=== PATIENT | male | born 1955 | race Caucasian/White ===

== ENCOUNTER → 2018-07-17 | Day surgery (SDC) | payer MEDICARE ==
[~2018-07-17] MED LIST: LIDOCAINE 1% MPF 2 ML AMPULE ONE; PROPOFOL 200 MG/20 ML VIAL IV ONE; Ringers Lactate 1,000 ML IV ONE
--- NOTE | 2018-07-17 09:57 | ENDO RPT ---
[address], [address] COLONOSCOPY PROCEDURE REPORT EXAM DATE: 07/17/2018 PATIENT NAME: Onofre Owens MR #: [id number] BIRTHDATE: 1955 ATTENDING: Celso Clark DR STATUS: outpatient FRENCH POLISHER: Kari Matias RN, Destiny Calvillo RN, Cheyenne Ramos, and Samy Ramos INDICATIONS: The patient is a 62 yr old Male here for a colonoscopy due to colon cancer screening PROCEDURE PERFORMED: Colonoscopy with biopsy - cold polypectomy MEDICATIONS: Per Anesthesia. ESTIMATED BLOOD LOSS: None CONSENT: The patient understands the risks and benefits of the procedure and understands that these risks include, but are not limited to: sedation, allergic reaction, infection, perforation and/or bleeding. Alternative means of evaluation and treatment include, among others: physical exam, x-rays, and/or surgical intervention. The patient elects to proceed with this endoscopic procedure. DESCRIPTION OF PROCEDURE: During intra-op preparation period all mechanical medical equipment was checked for proper function. Hand hygiene and appropriate measures for infection prevention was taken. Procedure, possible complications, alternatives including, but not limited to possibility of bleeding, perforation, tear, infection, sepsis, need for surgery, need for blood transfusion, were explained to the patient. After the risks, benefits and alternatives of the procedure were thoroughly explained, Informed consent was verified, confirmed and timeout was successfully executed by the treatment team. The patient was placed in the left lateral position. A digital rectal exam was performed and revealed internal hemorrhoids. After appropriate level of anesthesia, the scope was passed. The EC-[id number] ([id number]) endoscope was introduced through the anus and advanced to the cecum, which was identified by both the appendix and ileocecal valve. The quality of the prep was poor. The instrument was then slowly withdrawn as the colon was fully examined. Scope withdrawal time was 12 minutes. COLON FINDINGS: Small internal hemorrhoids were found. Mild diverticulosis was noted in the sigmoid colon. No bleeding was noted from the diverticulosis. A small smooth sessile polyp was found in the rectosigmoid colon. A polypectomy was performed with cold forceps. The resection was complete, the polyp tissue was completely retrieved and sent to histology. Retroflexed views revealed no abnormalities. The scope was then completely withdrawn from the patient and the procedure terminated. ADVERSE EVENTS: There were no complications. IMPRESSIONS: 1. Small internal hemorrhoids 2. Mild diverticulosis was noted in the sigmoid colon 3. Small sessile polyp was found in the rectosigmoid colon; polypectomy was performed with cold forceps RECOMMENDATIONS: 1. avoid NSAIDS for 2 weeks 2. await biopsy results 3. follow-up: office 2 week(s) 4. low fiber / diverticular diet 5. increase dietary water 6. yearly hemoccult starting in 4 years 7. hemorrhoidal hygiene RECALL: Return in 2 year(s) for Colonoscopy, pending biopsy results. Poor Prep, Next Colonoscopy should be done with a [address] eSigned: Celso Clark DR 07/17/2018 9:57 AM cc: CPT CODES: ICD9 CODES: PATIENT NAME: Onofre Owens MR#: [id number]
== END | disposition home or self-care (01) ==
LOC: OR 07:53
PROVIDERS: ATTEND Surgery
PROC: 0DBN8ZX Excision of Sigmoid Colon, Via Natural or Artificial Opening Endoscopic, Diagnostic (ICD-10-PCS; principal; 2018-07-17 09:15)
DX: Z12.11 Encounter for screening for malignant neoplasm of colon (principal); K63.5 Polyp of colon; K57.90 Diverticulosis of intestine, part unspecified, without perforation or abscess without bleeding; K64.8 Other hemorrhoids; B18.2 Chronic viral hepatitis C; I10 Essential (primary) hypertension; J44.9 Chronic obstructive pulmonary disease, unspecified; G89.4 Chronic pain syndrome; M19.90 Unspecified osteoarthritis, unspecified site; G62.9 Polyneuropathy, unspecified; F41.8 Other specified anxiety disorders; F17.200 Nicotine dependence, unspecified, uncomplicated; Z79.02 Long term (current) use of antithrombotics/antiplatelets; Z86.73 Personal history of transient ischemic attack (TIA), and cerebral infarction without residual deficits; Z80.42 Family history of malignant neoplasm of prostate; Z82.49 Family history of ischemic heart disease and other diseases of the circulatory system
CPT/HCPCS: 45380; 88305; J2001; J2704 ×2

== ENCOUNTER 2020-08-18 07:46 | Day surgery (SDC) | payer MEDICARE ==
[2020-08-18] MEDS ORDERED: Ringers Lactate 1,000 ML IV ONE (08:34)
[2020-08-18] MEDS: CEFAZOLIN/SWI 1gm 1 GM/10 ML SYR ONE ×2 (09:18→09:50)
[2020-08-18] MEDS ORDERED: BUPIVACAINE 0.25% PF 30 ML VIAL ONE (09:29)
[2020-08-18] MEDS ORDERED: BUPIVACA 0.25%/EPI 0.0005% MDV 50 ML VIAL ONE (09:49)
[2020-08-18] MEDS ORDERED: FENTANYL CITR 100 MCG/2 ML ONE (09:57)
[2020-08-18] MEDS ORDERED: LIDOCAINE 1% MPF 5 ML VIAL ONE (09:57)
[2020-08-18] MEDS ORDERED: MIDAZOLAM HCL 2 MG/2 ML INJ ONE (09:57)
[2020-08-18] MEDS ORDERED: propofoL 200 MG/20 ML VIAL IV ONE (09:57)
[2020-08-18] MEDS ORDERED: KETOROLAC 30 MG/ML INJ ONE (10:10)
--- NOTE | 2020-08-18 10:24 | P.OP ---
Preoperative diagnosis: Central Chest skin lesion Postoperative diagnosis: Central Chest skin lesion Primary procedure: Wide local excision of Central Chest skin lesion Anesthesia: GETA + Local Estimated blood loss: <5cc Specimen: Central Chest skin lesion Findings: 1cm round, exophytic, non-pigmented Central Chest skin lesion Complications: None Transferred to: Recovery Room Condition: Good
[2020-08-18] MEDS ORDERED: ONDANSETRON 4 MG/2 ML VIAL ONE (10:25)
--- NOTE | 2020-08-18 11:28 | OP ---
Date of Procedure: 08/18/2020 Surgeon: Celso Clark MD, Preoperative Diagnosis: Central chest skin lesion. Postoperative Diagnosis: Central chest skin lesion. Procedure Performed: Wide local excision of central chest skin lesion. Anesthesia: General endotracheal plus local with 0.25% Marcaine. Estimated Blood Loss: Less than 5 cc. Specimen: Central chest skin lesion. Findings: 1 cm round exophytic non-pigmented central chest skin lesion. Complications: None. Disposition: Transferred to recovery room in good condition. Procedure In Detail: After informed was obtained, the patient was brought to the operating room, pre pped and draped in usual sterile fashion. After adequate anesthesia was achieved, an area of 1 cm ci rcumferentially was demarcated with a marking pen in an elliptical fashion around the central chest e xophytic 1 cm skin lesion taking a 1 cm margin circumferentially around this area and in a slightly e llipse. This was taken down using a 15 blade down to the subcutaneous tissues. Electrocautery was u sed to dissect circumferentially around the subcutaneous plane. Marking stitches were placed short s titch superior, long, left lateral, and the specimen was sent off for pathologic examination. The ar ea was copiously irrigated and then hemostasis was achieved with electrocautery easily. I then under mined the skin circumferentially around, irrigated once again and dried the area and closed the centr al wound with an interrupted 2-0 nylon suture with good apposition of the tissue in a tension-free ma nner. A sterile dressing as placed over top. The patient tolerated the procedure well without evide nce of complication, transferred in good condition. All counts were correct at the end of the case. VISHAL/RICHARDL Voice ID: [id number] Report ID: [id number]
[2020-08-18 11:37] VITALS: BP 129/76; TEMP 97.4; O2SAT 95
== END 2020-08-18 11:40 | disposition home or self-care (01) ==
LOC: OR 07:46
PROVIDERS: ATTEND Surgery
PROC: 0JB60ZZ Excision of Chest Subcutaneous Tissue and Fascia, Open Approach (ICD-10-PCS; principal; 2020-08-18 09:30)
DX: C44.529 Squamous cell carcinoma of skin of other part of trunk (principal); Z20.822 Contact with and (suspected) exposure to COVID-19
CPT/HCPCS: 88305; 11602; U0002; J2704; J2250; J3010; J0690; J7120; J2405